=== PATIENT | female | born 1990 | race Two or more races ===

== ENCOUNTER 2016-06-08 09:44 | Inpatient (IN) | payer OTHER ==
[~2016-06-08] VITALS: Ht 157.5 cm; Wt 83.0 kg
[2016-06-08] VITALS (33 sets, daily range): BP systolic 105–147; BP diastolic 56–83
[~2016-06-08 09:44] MED LIST: ACET50TA PO; ACYC1CAP8 PO; HYDR1CRE TOP; IBUP80TA PO; PRENTAB9 PO; PRIL20CA PO; VALT1TAB PO; ZOLO50TA PO
[2016-06-08] MEDS ORDERED: PENICILLIN G POTASSIUM IV 5 MU in D5W MINI-BAG PLUS 100 ML IV STA (11:29)
[2016-06-08 12:12] LABS: MEAN CORPUSCULAR HEMOGLOBIN 28.6 pg (27.0-33.0); MEAN CORPUSCULAR HGB CONC 31.2 g/dl (32.0-36.5); MEAN CORPUSCULAR VOLUME 91.8 fl (80.0-96.0); WHITE BLOOD COUNT 11.5 K/mm3 (4.0-10.0)
[2016-06-08] MEDS: LR 1,000 ML IV SCH ×2 (12:13→14:00)
[2016-06-08] MEDS ORDERED: FENTANYL 2MCG/ML ROPIVACAINE 0.2% NACL 250 ML CADD As Ordered ONE (12:18)
[2016-06-08] MEDS ORDERED: FENTANYL/ROPIVACAINE/NACL CADD 250 ML EPIDURAL SCH (13:15)
[2016-06-08] MEDS ORDERED: ePHEDrine SULFATE 25 MG/5 ML(5MG/ML) SYRINGE IV PRN (13:15)
[2016-06-08] MEDS ORDERED: EPIDURAL COMMENT XX SCH (13:15)
[2016-06-08] MEDS ORDERED: REFRIGERATOR IV KEYS XX PRN (13:15)
[2016-06-08] MEDS ORDERED: NALOXONE INJ 0.4 MG/1 ML VIAL (J2310) IV PRN (13:15)
[2016-06-08] MEDS ORDERED: diphenhydrAMINE INJ 50MG/ML VIAL (J1200) IV PRN (13:15)
[2016-06-08] MEDS ORDERED: ONDANSETRON 4MG/2ML VIAL (J2405) IV PRN (13:15)
[2016-06-08] MEDS ORDERED: EPIDURAL/PCA KEYS XX PRN (13:15)
[2016-06-08] MEDS ORDERED: PENICILLIN G POTASSIUM IV 2.5 MU in D5W 100 ML IV SCH (16:15)
[2016-06-08] MEDS ORDERED: OXYTOCIN 30 UNITS IN 0.9% NaCl 500ML IV BAG (J2590) As Ordered ONE (17:03)
[2016-06-08] MEDS ORDERED: OXYTOCIN DRIP 30 UNITS in APPROPRIATE DILUENT 1 EA IV SCH (19:17)
[2016-06-08] MEDS ORDERED: IBUPROFEN 800 MG TAB PO PRN (19:30)
[2016-06-08] MEDS ORDERED: MEASLES,MUMPS,RUBELLA VACCINE INJ (MMR-II) (90707) SC SCH (19:30)
[2016-06-08] MEDS ORDERED: METHYLERGONOVINE MALEATE 0.2 MG TAB PO PRN (19:30)
[2016-06-08] MEDS ORDERED: ACETAMINOPHEN 500 MG TAB PO PRN (19:30)
[2016-06-08] MEDS ORDERED: RHOGAM 300 MCG (1500 IU) INJ (J2790) IM SCH (19:30)
[2016-06-08] MEDS ORDERED: DOCUSATE SODIUM 100 MG CAP PO PRN (19:30)
[2016-06-08] MEDS ORDERED: DIBUCAINE 1% OINTMENT 30GM TOP PRN (19:30)
[2016-06-09 05:53] VITALS: BP 135/72
[2016-06-09] MEDS: PRENATAL VITAMIN TAB PO SCH (08:32)
[2016-06-09] MEDS: SERTRALINE HCL 50 MG TAB PO SCH (08:32)
[2016-06-09] MEDS: OMEPRAZOLE 20 MG CAP PO SCH (10:40)
[2016-06-09 18:00] VITALS: BP 121/70
[2016-06-10 06:13] VITALS: BP 127/79
[2016-06-10] MEDS: OMEPRAZOLE 20 MG CAP PO SCH (09:31)
[2016-06-10] MEDS: SERTRALINE HCL 50 MG TAB PO SCH (09:31)
[2016-06-10] MEDS: PRENATAL VITAMIN TAB PO SCH (09:31)
[2016-06-10] MEDS ORDERED: ACET50TA PO (11:15)
[2016-06-10] MEDS ORDERED: IBUP-1114 PO (11:16)
== END 2016-06-10 12:10 | disposition home or self-care (01) | DRG 775 ==
LOC: M LDO 09:44 → M LDI 11:22 → M OBS 20:33
PROVIDERS: ADMIT Advanced Practice Midwife; ATTEND Advanced Practice Midwife
PROC: 10E0XZZ Delivery of Products of Conception, External Approach (ICD-10-PCS; principal; 2016-06-08)
PROC: 0HQ9XZZ Repair Perineum Skin, External Approach (ICD-10-PCS; 2016-06-08)
DX: O34.219 Maternal care for unspecified type scar from previous cesarean delivery (principal); Z37.0 Single live birth; Z3A.37 37 weeks gestation of pregnancy; O70.0 First degree perineal laceration during delivery

== ENCOUNTER → 2017-09-12 | Outpatient (REF) | payer OTHER | LOC: M SFHCLERA 13:14 | DX: J02.9 Acute pharyngitis, unspecified (principal) ==